=== PATIENT | male | born 1960 | race Caucasian/White ===

== ENCOUNTER 2018-11-19 03:12 | Emergency (ER) | payer SELFPAY ==
[~2018-11-19] VITALS: Ht 167.6 cm; Wt 65.8 kg
[2018-11-19 03:12] VITALS: BP_SYST 110
== END 2018-11-19 03:32 ==
LOC: SED 03:12
DX: F10.129 Alcohol abuse with intoxication, unspecified (principal); E11.9 Type 2 diabetes mellitus without complications; I10 Essential (primary) hypertension
CPT/HCPCS: 99283

== ENCOUNTER 2019-03-20 15:51 | Emergency (ER) | payer SELFPAY ==
[~2019-03-20] VITALS: Ht 152.4 cm; Wt 62.6 kg
--- NOTE | 2019-03-20 15:55 | NUR ---
Patient to ER bed H1 to gown for evaluation. Side rails up.
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
[2019-03-20 16:03] VITALS: BP_SYST 124
--- NOTE | 2019-03-20 16:05 | NUR ---
Dr Elizabeth at bedside examining patient
--- NOTE | 2019-03-20 16:27 | NUR ---
Patient given written and verbal discharge instructions and verbalizes understanding. ER MD discussed with patient the results and treatment provided. Patient in stable condition. ID arm band removed. No Rx given. Patient educated on pain management and to follow up with PMD. Pain Scale 0/10. Opportunity for questions provided and answered. Medication side effect fact sheet provided.
[2019-03-20 16:31] VITALS: BP_SYST 124
== END 2019-03-20 16:27 ==
LOC: SED 15:51
DX: F10.10 Alcohol abuse, uncomplicated (principal); E11.9 Type 2 diabetes mellitus without complications; I10 Essential (primary) hypertension
CPT/HCPCS: 99283